=== PATIENT | male | born 1995 | race Caucasian/White ===

== ENCOUNTER 2017-06-13 08:27 | Emergency (ER) | payer OTHER ==
[~2017-06-13] VITALS: Ht 152.4 cm; Wt 80.0 kg
[~2017-06-13 08:27] MED LIST: BACTRIM DS1 TAB PO; NAPROSYN500 MG PO
[2017-06-13] MEDS ORDERED: BACTRIM DS1 TAB PO (08:42)
[2017-06-13] MEDS ORDERED: NAPROSYN500 MG PO (08:42)
[2017-06-13 08:46] VITALS: BP 135/60
[2017-06-14] MEDS ORDERED: PERCOCET 5/325M1 TAB PO (20:23)
[2017-06-14] MEDS ORDERED: KEFLEX500 MG PO (20:23)
== END 2017-06-13 08:51 | disposition home or self-care (01) | DRG 556 ==
LOC: ED 08:27
DX: M79.621 Pain in right upper arm (principal)

== ENCOUNTER 2017-06-14 19:03 | Emergency (ER) | payer OTHER ==
[~2017-06-14] VITALS: Ht 175.3 cm; Wt 76.0 kg
[2017-06-14] MEDS ORDERED: PERCOCET 5/325M1 TAB PO (20:23)
[2017-06-14] MEDS ORDERED: KEFLEX500 MG PO (20:23)
[2017-06-14 20:30] VITALS: BP 133/55
== END 2017-06-14 20:38 | disposition home or self-care (01) | DRG 603 ==
LOC: ED 19:03
PROC: 0H9BXZZ Drainage of Right Upper Arm Skin, External Approach (ICD-10-PCS; principal; 2017-06-14)
DX: L02.411 Cutaneous abscess of right axilla (principal); B95.62 Methicillin resistant Staphylococcus aureus infection as the cause of diseases classified elsewhere

== ENCOUNTER 2018-09-15 09:05 | Emergency (ER) | payer OTHER ==
[~2018-09-15] VITALS: Ht 175.3 cm; Wt 90.0 kg
[~2018-09-15 09:05] MED LIST changes: +KEFLEX500 MG PO; +PERCOCET 5/325M1 TAB PO
[2018-09-15] MEDS ORDERED: BACTRIM DS1 TAB PO (10:20)
[2018-09-15] MEDS ORDERED: CEPHALEXIN500 M1 PO (10:20)
[2018-09-15] MEDS ORDERED: LORTAB 1010 MG PO (10:21)
[2018-09-15 10:31] VITALS: BP 141/70
== END 2018-09-15 10:45 | disposition home or self-care (01) ==
LOC: ED 09:05
DX: L03.011 Cellulitis of right finger (principal)

== ENCOUNTER 2018-09-17 09:38 | Emergency (ER) | payer OTHER ==
[~2018-09-17] VITALS: Ht 175.3 cm; Wt 77.3 kg
[~2018-09-17 09:38] MED LIST changes: +CEPHALEXIN500 M1 PO; +LORTAB 1010 MG PO
[2018-09-17] MEDS ORDERED: NAPROSYN500 MG PO (10:53)
[2018-09-17 11:00] VITALS: BP 111/57
== END 2018-09-17 11:00 | disposition home or self-care (01) ==
LOC: ED 09:38
DX: L02.511 Cutaneous abscess of right hand (principal); B95.62 Methicillin resistant Staphylococcus aureus infection as the cause of diseases classified elsewhere

== ENCOUNTER 2018-09-22 14:13 | Emergency (ER) | payer OTHER ==
[~2018-09-22] VITALS: Ht 175.3 cm; Wt 79.5 kg
[2018-09-22] MEDS ORDERED: KEFLEX500 M1 PO (14:47)
[2018-09-22] MEDS ORDERED: CEPHALEXIN500 MG PO (14:48)
[2018-09-22] MEDS ORDERED: BACTRIM DS1 TAB PO (14:48)
[2018-09-22 14:51] VITALS: BP 132/81
== END 2018-09-22 14:51 | disposition home or self-care (01) ==
LOC: ED 14:13
DX: S01.03XA Puncture wound without foreign body of scalp, initial encounter (principal); W20.8XXA Other cause of strike by thrown, projected or falling object, initial encounter; Y93.89 Activity, other specified; Y92.009 Unspecified place in unspecified non-institutional (private) residence as the place of occurrence of the external cause

== ENCOUNTER 2019-12-16 | Emergency (ER) | payer OTHER ==
[~2019-12-16] MED LIST changes: +CEPHALEXIN500 MG PO; +KEFLEX500 M1 PO
[2019-12-16] MEDS ORDERED: BACTRIM DS1 TAB PO (21:10)
== END 2019-12-16 21:39 | disposition home or self-care (01) ==
DX: S61.442A Puncture wound with foreign body of left hand, initial encounter (principal); W34.010A Accidental discharge of airgun, initial encounter; Y93.89 Activity, other specified; Y92.009 Unspecified place in unspecified non-institutional (private) residence as the place of occurrence of the external cause

== ENCOUNTER 2022-06-26 10:50 | Emergency (ER) | payer OTHER ==
[~2022-06-26] VITALS: Ht 175.3 cm; Wt 80.0 kg
[2022-06-26 13:39] VITALS: BP 126/78
== END 2022-06-26 14:01 | disposition home or self-care (01) ==
LOC: ED 10:50
DX: M25.562 Pain in left knee (principal); F17.290 Nicotine dependence, other tobacco product, uncomplicated; W20.8XXA Other cause of strike by thrown, projected or falling object, initial encounter